=== PATIENT | female | born 1940 | race Two or more races ===

== ENCOUNTER 2021-04-26 10:34 | Inpatient (IN) | payer MEDICARE ==
[~2021-04-26] VITALS: Ht 165.1 cm; Wt 75.3 kg
[~2021-04-26 10:34] MED LIST: ACTOS; GLYB1POW; LISIPOW; LOVAPOW; METFORMIN
[2021-04-26 11:55] LABS: Basophils # (auto) 0.1 10 ^3/uL (0-0.2); Basophils % (auto) 0.6 % (0.0-2.0); Eosinophils # (auto) 0.2 10 ^3/uL (0-0.8); Eosinophils % (auto) 1.8 % (0.0-7.0); Hematocrit 35.9 % (36.0-46.0); Hemoglobin 11.8 g/dL (12.2-16.2); Lymphocytes # (auto) 1.3 10 ^3/uL (0.4-5.4); Lymphocytes % (auto) 11.6 % (10.0-50.0); Mean Corpuscular Hemoglobin 31.4 pg (28.0-32.0); Mean Corpuscular Hgb Conc. 32.8 g/dL (32.0-36.0); Mean Corpuscular Volume 95.7 fL (80.0-100.0); Monocytes # (auto) 0.9 10 ^3/uL (0-1.3); Monocytes % (auto) 7.9 % (0.0-12.0); Neutrophils # (auto) 8.5 10 ^3/uL (1.6-8.6); Neutrophils % (auto) 78.1 % (37.0-80.0); Nucleated Red Blood Cells % 0.3 %; Red Blood Cells 3.75 10^6/uL (4.0-5.20); Red Cell Distribution Width 13.1 % (11.8-14.3); White Blood Cell 10.8 10^3/uL (4.4-10.8)
[2021-04-26 12:48] LABS: Chloride 102 mmol/L (98-107); Potassium 4.6 mmol/L (3.5-5.1); Sodium 133 mmol/L (136-145)
[2021-04-26 12:49] LABS: Alanine Aminotransferase 15 U/L (13-56); Alkaline Phosphatase 119 U/L (45-117); Anion Gap 10 (5-15); Aspartate Aminotransferase 32 U/L (15-37); BUN/Creatinine Ratio 36.8; Bilirubin, Total 0.5 mg/dL (0.2-1.0); Blood Urea Nitrogen 53 mg/dL (7-18); Calcium 8.9 mg/dL (8.5-10.1); Carbon Dioxide 21 mmol/L (21-32); GFR African American 45 mL/min; GFR Non-African American 37 mL/min; Glucose 215 mg/dL (74-106); Total Protein 8.1 g/dL (6.4-8.2)
[2021-04-26 12:50] LABS: Albumin 2.7 g/dL (3.4-5.0); Magnesium 1.9 mg/dL (1.6-2.6)
[2021-04-26] MEDS ORDERED: NITROGLYCERIN 0.4 MG SL TAB SL PRN ×2 (14:45→18:30)
[2021-04-26] MEDS ORDERED: MORPHINE SULFATE INJECTION 2 MG/ML SYRG IV PRN ×3 (14:45→18:30)
[2021-04-26] MEDS ORDERED: ENOXAPARIN SOD 80 MG/0.8ML SYRINGE SC ONE (14:45)
[2021-04-26] MEDS ORDERED: DEXTROSE (50%) 50ML SYRG IV PRN ×2 (14:45→18:00)
[2021-04-26] MEDS ORDERED: ASPI-543 PO (15:49)
[2021-04-26] MEDS ORDERED: ANAS1TAB7 PO (15:49)
[2021-04-26] MEDS ORDERED: SITA50TA PO (15:49)
[2021-04-26] MEDS ORDERED: LOSA-69 PO (15:49)
[2021-04-26] MEDS ORDERED: FERR325T20 PO (15:49)
[2021-04-26] MEDS ORDERED: CARV6.2551 PO (15:49)
[2021-04-26] MEDS ORDERED: GLIP5TAB12 PO (15:49)
[2021-04-26] MEDS ORDERED: FURO40TA4 PO (15:49)
[2021-04-26] MEDS ORDERED: ATOR20TA50 PO (15:49)
[2021-04-26] MEDS ORDERED: SPIR25TA8 PO (15:49)
[2021-04-26] MEDS ORDERED: TRAM50TA2 PO (15:49)
[2021-04-26] MEDS ORDERED: ACCU-CHEK COMFORT CURVE STRIP VI SCH (17:00)
[2021-04-26] MEDS ORDERED: InsuLIN REG 1unit/0.01ml Soln (100units/ml) SC SCH (17:00)
[2021-04-26] MEDS: BUMETANIDE 2.5mg/10ml (0.25 mg/ml) INJ IV SCH (17:49)
[2021-04-26] MEDS ORDERED: cefTRIAXone 1GM/50ML D5W 50 ML IV ONE (18:00)
[2021-04-26] MEDS ORDERED: AZITHROMYCIN 500MG/ 250ML 250 ML IV ONE (18:00)
[2021-04-26] MEDS ORDERED: ALUM & MAG HYDROX-SIMETH LIQ(MAALOX) 30 ML PO PRN (18:30)
[2021-04-26] MEDS ORDERED: LORazepam 0.5 MG TAB PO PRN (18:30)
[2021-04-26 22:00] VITALS: BP 122/57
[2021-04-26] MEDS: InsuLIN REG 1unit/0.01ml Soln (100units/ml) SC SCH (22:00)
[2021-04-26] MEDS: CARVEDILOL 3.125 MG TAB PO SCH (22:16)
[2021-04-26] MEDS: ENOXAPARIN SOD 80 MG/0.8ML SYRINGE SC SCH (22:17)
[2021-04-26] MEDS: ATORVASTATIN 20 MG TAB PO SCH (22:17)
[2021-04-26] MEDS: SACUBITRIL-VALSARTAN 24mg/26mg TAB PO SCH (22:17)
[2021-04-26] MEDS: ACCU-CHEK COMFORT CURVE STRIP VI SCH (22:17)
[2021-04-27] MEDS: DOCUSATE SOD 100 MG CAP PO PRN (00:43)
[2021-04-27 06:35] VITALS: BP 107/49
[2021-04-27 06:53] LABS: Basophils # (auto) 0.1 10 ^3/uL (0-0.2); Basophils % (auto) 0.7 % (0.0-2.0); Eosinophils # (auto) 0.1 10 ^3/uL (0-0.8); Eosinophils % (auto) 0.6 % (0.0-7.0); Hemoglobin 12.1 g/dL (12.2-16.2); Lymphocytes # (auto) 0.9 10 ^3/uL (0.4-5.4); Lymphocytes % (auto) 8.3 % (10.0-50.0); Mean Corpuscular Hemoglobin 31.6 pg (28.0-32.0); Mean Corpuscular Hgb Conc. 33.5 g/dL (32.0-36.0); Mean Corpuscular Volume 94.3 fL (80.0-100.0); Monocytes # (auto) 0.7 10 ^3/uL (0-1.3); Monocytes % (auto) 6.6 % (0.0-12.0); Neutrophils # (auto) 8.9 10 ^3/uL (1.6-8.6); Neutrophils % (auto) 83.8 % (37.0-80.0); Nucleated Red Blood Cells % 0.1 %; Red Blood Cells 3.82 10^6/uL (4.0-5.20); Red Cell Distribution Width 13.4 % (11.8-14.3); White Blood Cell 10.6 10^3/uL (4.4-10.8)
[2021-04-27] MEDS: ACCU-CHEK COMFORT CURVE STRIP VI SCH ×4 (07:02→22:26)
[2021-04-27] MEDS: BUMETANIDE 2.5mg/10ml (0.25 mg/ml) INJ IV SCH ×2 (07:02→18:02)
[2021-04-27 07:12] LABS: INR 1.11 (0.9-1.15)
[2021-04-27 07:33] LABS: Potassium 4.6 mmol/L (3.5-5.1)
[2021-04-27] MEDS: InsuLIN REG 1unit/0.01ml Soln (100units/ml) SC SCH ×4 (07:42→22:26)
[2021-04-27 07:45] LABS: Albumin 2.9 g/dL (3.4-5.0); BUN/Creatinine Ratio 36.5; Bilirubin, Total 0.4 mg/dL (0.2-1.0); Magnesium 1.5 mg/dL (1.6-2.6); Phosphorus 3.6 mg/dL (2.5-4.90); Total Protein 7.1 g/dL (6.4-8.2); Uric Acid 11.2 mg/dL (2.6-6.0)
[2021-04-27 08:15] LABS: Urine Bacteria NONE SEEN /hpf (None Seen); Urine Blood TRACE /uL (Negative); Urine Hyaline Cast MANY /lpf (0 - 2); Urine Mucus FEW (None Seen); Urine Specific Gravity 1.008 (1.001-1.035); Urine WBC 201 /hpf (0 - 5); Urine WBC Clumps PRESENT /hpf (None Seen)
[2021-04-27 08:30] LABS: Cannabinoid Screen, Urine NEGATIVE (NEGATIVE)
[2021-04-27 08:38] LABS: Amphetamine Screen, Urine NEGATIVE (NEGATIVE); Barbiturate Scree,Urine NEGATIVE (NEGATIVE); Benzodiazephine Screen, Urine NEGATIVE (NEGATIVE); Cocaine Screen, Urine NEGATIVE (NEGATIVE); Opiate Scree,Urine NEGATIVE (NEGATIVE); Phencyclidine Screen, Urine NEGATIVE (NEGATIVE)
[2021-04-27 09:00] VITALS: BP 128/79
[2021-04-27] MEDS: AZITHROMYCIN 500MG/ 250ML 250 ML IV SCH (09:33)
[2021-04-27] MEDS: cefTRIAXone 1GM/50ML D5W 50 ML IV SCH (09:33)
[2021-04-27] MEDS: ASPirin 81 mg TAB PO SCH (09:33)
[2021-04-27] MEDS: ENOXAPARIN SOD 80 MG/0.8ML SYRINGE SC SCH ×2 (09:34→22:17)
[2021-04-27] MEDS: SACUBITRIL-VALSARTAN 24mg/26mg TAB PO SCH ×2 (09:34→22:16)
[2021-04-27] MEDS: CARVEDILOL 3.125 MG TAB PO SCH ×2 (09:34→22:17)
[2021-04-27 13:02] VITALS: BP 98/44
[2021-04-27 16:53] VITALS: BP 107/44
[2021-04-27] MEDS: ACETAMINOPHEN 325 MG TAB PO PRN (18:02)
[2021-04-27 22:00] VITALS: BP 121/64
[2021-04-27] MEDS: ATORVASTATIN 20 MG TAB PO SCH (22:16)
[2021-04-27] MEDS: INSULIN LANTUS (GLARGINE) 1 /0.01ml (100units/ml) SC SCH (22:25)
[2021-04-28 02:23] VITALS: BP 121/62
[2021-04-28 05:47] VITALS: BP 126/55
[2021-04-28] MEDS: BUMETANIDE 2.5mg/10ml (0.25 mg/ml) INJ IV SCH ×2 (06:23→18:06)
[2021-04-28] MEDS: InsuLIN REG 1unit/0.01ml Soln (100units/ml) SC SCH ×4 (06:26→20:40)
[2021-04-28] MEDS: INSULIN LANTUS (GLARGINE) 1 /0.01ml (100units/ml) SC SCH ×2 (06:27→20:40)
[2021-04-28] MEDS: ACCU-CHEK COMFORT CURVE STRIP VI SCH ×4 (06:31→20:40)
[2021-04-28 07:10] LABS: Basophils # (auto) 0 10 ^3/uL (0-0.2); Basophils % (auto) 0.4 % (0.0-2.0); Eosinophils # (auto) 0.1 10 ^3/uL (0-0.8); Eosinophils % (auto) 1.3 % (0.0-7.0); Hemoglobin 11.2 g/dL (12.2-16.2); Lymphocytes % (auto) 10.5 % (10.0-50.0); Mean Corpuscular Hemoglobin 31.8 pg (28.0-32.0); Mean Corpuscular Volume 93.4 fL (80.0-100.0); Monocytes # (auto) 0.6 10 ^3/uL (0-1.3); Monocytes % (auto) 6.7 % (0.0-12.0); Neutrophils # (auto) 7.8 10 ^3/uL (1.6-8.6); Neutrophils % (auto) 81.1 % (37.0-80.0); Nucleated Red Blood Cells % 0.1 %; Red Blood Cells 3.53 10^6/uL (4.0-5.20); White Blood Cell 9.6 10^3/uL (4.4-10.8)
[2021-04-28 07:21] LABS: Albumin 2.5 g/dL (3.4-5.0); Calcium 8.5 mg/dL (8.5-10.1); Magnesium 1.4 mg/dL (1.6-2.6); Potassium 4.1 mmol/L (3.5-5.1)
[2021-04-28 07:30] LABS: BUN/Creatinine Ratio 34.6; Bilirubin, Total 0.3 mg/dL (0.2-1.0); Total Protein 7.3 g/dL (6.4-8.2)
[2021-04-28 09:00] VITALS: BP 117/49
[2021-04-28] MEDS: cefTRIAXone 1GM/50ML D5W 50 ML IV SCH (10:17)
[2021-04-28] MEDS: CARVEDILOL 3.125 MG TAB PO SCH ×2 (10:18→21:30)
[2021-04-28] MEDS: ASPirin 81 mg TAB PO SCH (10:18)
[2021-04-28] MEDS: AZITHROMYCIN 500MG/ 250ML 250 ML IV SCH (10:18)
[2021-04-28] MEDS: ENOXAPARIN SOD 80 MG/0.8ML SYRINGE SC SCH (10:19)
[2021-04-28] MEDS: SACUBITRIL-VALSARTAN 24mg/26mg TAB PO SCH ×2 (10:19→21:30)
[2021-04-28 13:00] VITALS: BP 118/52
[2021-04-28 17:00] VITALS: BP 107/50
[2021-04-28] MEDS: ATORVASTATIN 20 MG TAB PO SCH (21:30)
[2021-04-28 22:00] VITALS: BP 119/62
[2021-04-29] MEDS: InsuLIN REG 1unit/0.01ml Soln (100units/ml) SC SCH ×4 (05:07→20:49)
[2021-04-29] MEDS: ACCU-CHEK COMFORT CURVE STRIP VI SCH ×4 (05:07→20:44)
[2021-04-29] MEDS: INSULIN LANTUS (GLARGINE) 1 /0.01ml (100units/ml) SC SCH ×2 (05:12→20:50)
[2021-04-29] MEDS: BUMETANIDE 2.5mg/10ml (0.25 mg/ml) INJ IV SCH ×2 (05:14→17:40)
[2021-04-29 05:17] VITALS: BP 113/90
[2021-04-29 06:01] LABS: Basophils # (auto) 0.1 10 ^3/uL (0-0.2); Basophils % (auto) 0.7 % (0.0-2.0); Eosinophils # (auto) 0.2 10 ^3/uL (0-0.8); Hematocrit 32.3 % (36.0-46.0); Hemoglobin 10.9 g/dL (12.2-16.2); Lymphocytes # (auto) 1.1 10 ^3/uL (0.4-5.4); Lymphocytes % (auto) 12.4 % (10.0-50.0); Mean Corpuscular Hemoglobin 31.6 pg (28.0-32.0); Mean Corpuscular Hgb Conc. 33.6 g/dL (32.0-36.0); Monocytes # (auto) 0.5 10 ^3/uL (0-1.3); Monocytes % (auto) 5.6 % (0.0-12.0); Neutrophils % (auto) 79.3 % (37.0-80.0); Nucleated Red Blood Cells % 0.1 %; Red Blood Cells 3.44 10^6/uL (4.0-5.20); Red Cell Distribution Width 12.9 % (11.8-14.3); White Blood Cell 8.8 10^3/uL (4.4-10.8)
[2021-04-29 06:21] LABS: Calcium 8.5 mg/dL (8.5-10.1); Potassium 4.2 mmol/L (3.5-5.1)
[2021-04-29 06:23] LABS: BUN/Creatinine Ratio 34.5
[2021-04-29 08:00] VITALS: BP 99/58
[2021-04-29] MEDS: ASPirin 81 mg TAB PO SCH (09:29)
[2021-04-29] MEDS: SACUBITRIL-VALSARTAN 24mg/26mg TAB PO SCH ×2 (09:33→22:00)
[2021-04-29] MEDS: CARVEDILOL 3.125 MG TAB PO SCH ×3 (09:33→22:01)
[2021-04-29] MEDS: ENOXAPARIN SOD 80 MG/0.8ML SYRINGE SC SCH (09:34)
[2021-04-29] MEDS: cefTRIAXone 1GM/50ML D5W 50 ML IV SCH ×2 (09:35→10:40)
[2021-04-29] MEDS: AZITHROMYCIN 500MG/ 250ML 250 ML IV SCH (09:36)
[2021-04-29 09:49] LABS: INR 1.03 (0.9-1.15)
[2021-04-29 12:00] VITALS: BP 108/69
[2021-04-29 16:00] VITALS: BP 116/56
[2021-04-29 22:00] VITALS: BP 105/50
[2021-04-29] MEDS: ATORVASTATIN 20 MG TAB PO SCH (22:00)
[2021-04-30] VITALS (12 sets, daily range): BP systolic 84–135; BP diastolic 33–67
[2021-04-30] MEDS: INSULIN LANTUS (GLARGINE) 1 /0.01ml (100units/ml) SC SCH ×2 (05:16→21:49)
[2021-04-30] MEDS: InsuLIN REG 1unit/0.01ml Soln (100units/ml) SC SCH ×4 (05:20→21:48)
[2021-04-30] MEDS: ACCU-CHEK COMFORT CURVE STRIP VI SCH ×4 (05:20→21:49)
[2021-04-30] MEDS: BUMETANIDE 2.5mg/10ml (0.25 mg/ml) INJ IV SCH ×2 (05:28→18:59)
[2021-04-30 06:38] LABS: INR 0.99 (0.9-1.15); Partial Thromboplastin Time 29.2 sec (23.6-33.0)
[2021-04-30] MEDS: cefTRIAXone 1GM/50ML D5W 50 ML IV SCH (08:36)
[2021-04-30] MEDS ORDERED: LIDOCAINE 2%HCL (LOCAL ANESTH.) INJ 20ML MDV ONE (08:49)
[2021-04-30] MEDS ORDERED: MIDAZOLAM HCL 2MG/2ML 2ml VIAL (1mg/ml) IV ONE (09:30)
[2021-04-30] MEDS ORDERED: fentaNYL CITRATE 100 MCG/2 ML VL IV ONE (09:30)
[2021-04-30] MEDS: ENOXAPARIN SOD 80 MG/0.8ML SYRINGE SC SCH (10:00)
[2021-04-30] MEDS: ASPirin 81 mg TAB PO SCH (10:00)
[2021-04-30] MEDS: SACUBITRIL-VALSARTAN 24mg/26mg TAB PO SCH ×2 (11:06→21:47)
[2021-04-30] MEDS: CARVEDILOL 3.125 MG TAB PO SCH ×2 (11:07→21:45)
[2021-04-30] MEDS: AZITHROMYCIN 500MG/ 250ML 250 ML IV SCH (13:58)
[2021-04-30] MEDS: ERTAPENEM SOD INJ 1 GM in SODIUM CHL 0.9% 50 ML IV ONE ×2 (13:59→15:20)
[2021-04-30] MEDS: ACETAMINOPHEN 325 MG TAB PO PRN (15:20)
[2021-04-30 16:43] LABS: Basophils % (manual) 0 (0.0-2.0); Blast Cells 0; Metamyelocytes % 0; Myelocytes % 0; Promyelocytes % 0; Reactive Lymphocytes 0
[2021-04-30] MEDS: HYDROcodone-ACET 5/325MG TAB PO PRN (16:45)
[2021-04-30] MEDS: ONDANSETRON HCL 4 MG/2 ML VIAL IV PRN (17:24)
[2021-04-30 19:06] LABS: Band Neutrophils % (manual) 2; Eosinophils % (manual) 1 (0-7); Lymphocytes % (manual) 9 (10.0-50.0); Monocytes % (manual) 8 (0-12); White Blood Cell 9.3 10^3/uL (4.4-10.8)
[2021-04-30] MEDS: ATORVASTATIN 20 MG TAB PO SCH (21:43)
[2021-05-01] MEDS: HYDROcodone-ACET 5/325MG TAB PO PRN (00:36)
[2021-05-01 03:12] VITALS: BP 106/63
[2021-05-01] MEDS: ALBUTEROL SULF 2.5 MG/0.5ML(0.5%) NEB SOLN NEB PRN ×2 (03:20→03:22)
[2021-05-01 06:12] VITALS: BP 104/52
[2021-05-01] MEDS: BUMETANIDE 2.5mg/10ml (0.25 mg/ml) INJ IV SCH ×2 (06:15→17:43)
[2021-05-01] MEDS: ACCU-CHEK COMFORT CURVE STRIP VI SCH ×4 (06:16→22:50)
[2021-05-01] MEDS: InsuLIN REG 1unit/0.01ml Soln (100units/ml) SC SCH ×4 (06:17→22:00)
[2021-05-01] MEDS: INSULIN LANTUS (GLARGINE) 1 /0.01ml (100units/ml) SC SCH ×2 (06:17→22:00)
[2021-05-01 06:55] LABS: Basophils # (auto) 0 10 ^3/uL (0-0.2); Basophils % (auto) 0.2 % (0.0-2.0); Eosinophils # (auto) 0 10 ^3/uL (0-0.8); Eosinophils % (auto) 0.1 % (0.0-7.0); Hematocrit 35.5 % (36.0-46.0); Hemoglobin 11.8 g/dL (12.2-16.2); Lymphocytes # (auto) 0.7 10 ^3/uL (0.4-5.4); Lymphocytes % (auto) 5.3 % (10.0-50.0); Mean Corpuscular Hemoglobin 31.2 pg (28.0-32.0); Mean Corpuscular Hgb Conc. 33.2 g/dL (32.0-36.0); Mean Corpuscular Volume 94.1 fL (80.0-100.0); Monocytes # (auto) 0.4 10 ^3/uL (0-1.3); Monocytes % (auto) 3.3 % (0.0-12.0); Neutrophils # (auto) 11.5 10 ^3/uL (1.6-8.6); Neutrophils % (auto) 91.1 % (37.0-80.0); Red Blood Cells 3.77 10^6/uL (4.0-5.20); Red Cell Distribution Width 13.2 % (11.8-14.3); White Blood Cell 12.6 10^3/uL (4.4-10.8)
[2021-05-01 07:14] LABS: BUN/Creatinine Ratio 34.2; Calcium 8.7 mg/dL (8.5-10.1)
[2021-05-01 09:00] VITALS: BP 97/44
[2021-05-01] MEDS: AZITHROMYCIN 500MG/ 250ML 250 ML IV SCH (10:00)
[2021-05-01] MEDS: ASPirin 81 mg TAB PO SCH (10:31)
[2021-05-01] MEDS: ENOXAPARIN SOD 80 MG/0.8ML SYRINGE SC SCH (10:31)
[2021-05-01] MEDS: CARVEDILOL 3.125 MG TAB PO SCH ×2 (10:33→22:00)
[2021-05-01] MEDS: ERTAPENEM SOD INJ 0.5 GM in SODIUM CHL 0.9% 50 ML IV SCH (12:00)
[2021-05-01 13:00] VITALS: BP 99/46
[2021-05-01] MEDS: SACUBITRIL-VALSARTAN 24mg/26mg TAB PO SCH ×2 (13:03→22:00)
[2021-05-01 17:00] VITALS: BP 102/46
[2021-05-01 21:52] VITALS: BP 92/50
[2021-05-01] MEDS: ATORVASTATIN 20 MG TAB PO SCH (22:39)
[2021-05-02] MEDS: HYDROcodone-ACET 5/325MG TAB PO PRN ×2 (03:45→21:00)
[2021-05-02 05:05] VITALS: BP 156/43
[2021-05-02] MEDS: BUMETANIDE 2.5mg/10ml (0.25 mg/ml) INJ IV SCH (05:27)
[2021-05-02] MEDS: InsuLIN REG 1unit/0.01ml Soln (100units/ml) SC SCH ×4 (06:36→22:11)
[2021-05-02] MEDS: INSULIN LANTUS (GLARGINE) 1 /0.01ml (100units/ml) SC SCH ×2 (06:36→22:13)
[2021-05-02] MEDS: ACCU-CHEK COMFORT CURVE STRIP VI SCH ×4 (06:37→21:49)
[2021-05-02 09:00] VITALS: BP 99/46
[2021-05-02 09:32] LABS: BUN/Creatinine Ratio 30.5; Calcium 8.5 mg/dL (8.5-10.1); Potassium 4.6 mmol/L (3.5-5.1)
[2021-05-02 09:33] LABS: Basophils # (auto) 0 10 ^3/uL (0-0.2); Basophils % (auto) 0.3 % (0.0-2.0); Eosinophils # (auto) 0.1 10 ^3/uL (0-0.8); Eosinophils % (auto) 0.5 % (0.0-7.0); Hematocrit 33.2 % (36.0-46.0); Lymphocytes # (auto) 1.2 10 ^3/uL (0.4-5.4); Lymphocytes % (auto) 11.7 % (10.0-50.0); Mean Corpuscular Hemoglobin 31.1 pg (28.0-32.0); Mean Corpuscular Hgb Conc. 33.2 g/dL (32.0-36.0); Mean Corpuscular Volume 93.8 fL (80.0-100.0); Monocytes # (auto) 0.7 10 ^3/uL (0-1.3); Monocytes % (auto) 7.2 % (0.0-12.0); Neutrophils # (auto) 8.2 10 ^3/uL (1.6-8.6); Neutrophils % (auto) 80.3 % (37.0-80.0); Nucleated Red Blood Cells % 0.1 %; Red Blood Cells 3.54 10^6/uL (4.0-5.20); White Blood Cell 10.2 10^3/uL (4.4-10.8)
[2021-05-02] MEDS: ENOXAPARIN SOD 80 MG/0.8ML SYRINGE SC SCH (11:09)
[2021-05-02] MEDS: ASPirin 81 mg TAB PO SCH (11:09)
[2021-05-02] MEDS: AZITHROMYCIN 500MG/ 250ML 250 ML IV SCH (11:09)
[2021-05-02] MEDS: SACUBITRIL-VALSARTAN 24mg/26mg TAB PO SCH ×2 (11:12→22:11)
[2021-05-02] MEDS: CARVEDILOL 3.125 MG TAB PO SCH ×2 (11:12→22:12)
[2021-05-02 13:00] VITALS: BP 96/51
[2021-05-02] MEDS: ERTAPENEM SOD INJ 0.5 GM in SODIUM CHL 0.9% 50 ML IV SCH (13:12)
[2021-05-02 17:15] VITALS: BP 108/46
[2021-05-02] MEDS: Glucerna Carbsteady SHAKE Vanilla 8oz PO SCH (18:09)
[2021-05-02 21:35] VITALS: BP 117/62
[2021-05-02] MEDS: ATORVASTATIN 20 MG TAB PO SCH (22:11)
[2021-05-03 04:07] LABS: Urine Bacteria NONE SEEN /hpf (None Seen); Urine Blood Negative /uL (Negative); Urine Hyaline Cast FEW /lpf (0 - 2); Urine Specific Gravity 1.016 (1.001-1.035); Urine WBC 1 /hpf (0 - 5)
[2021-05-03 04:08] LABS: Protein, Urine 38.1 mg/dL (0.0-11.9)
[2021-05-03 05:00] VITALS: BP 142/66
[2021-05-03] MEDS: ACCU-CHEK COMFORT CURVE STRIP VI SCH ×4 (06:53→22:40)
[2021-05-03] MEDS: INSULIN LANTUS (GLARGINE) 1 /0.01ml (100units/ml) SC SCH ×2 (06:59→22:47)
[2021-05-03] MEDS: InsuLIN REG 1unit/0.01ml Soln (100units/ml) SC SCH ×4 (07:00→22:47)
[2021-05-03 09:00] VITALS: BP 90/58
[2021-05-03] MEDS: Glucerna Carbsteady SHAKE Vanilla 8oz PO SCH ×2 (09:27→17:35)
[2021-05-03 09:37] LABS: Basophils # (auto) 0 10 ^3/uL (0-0.2); Basophils % (auto) 0.4 % (0.0-2.0); Eosinophils # (auto) 0.1 10 ^3/uL (0-0.8); Eosinophils % (auto) 0.7 % (0.0-7.0); Hematocrit 32.9 % (36.0-46.0); Lymphocytes # (auto) 0.9 10 ^3/uL (0.4-5.4); Lymphocytes % (auto) 9.8 % (10.0-50.0); Mean Corpuscular Hemoglobin 31.7 pg (28.0-32.0); Mean Corpuscular Hgb Conc. 33.4 g/dL (32.0-36.0); Mean Corpuscular Volume 94.7 fL (80.0-100.0); Monocytes # (auto) 0.8 10 ^3/uL (0-1.3); Monocytes % (auto) 8.9 % (0.0-12.0); Neutrophils # (auto) 7.6 10 ^3/uL (1.6-8.6); Neutrophils % (auto) 80.2 % (37.0-80.0); Red Blood Cells 3.48 10^6/uL (4.0-5.20); Red Cell Distribution Width 13.4 % (11.8-14.3); White Blood Cell 9.5 10^3/uL (4.4-10.8)
[2021-05-03 09:38] LABS: Potassium 4.8 mmol/L (3.5-5.1)
[2021-05-03 09:56] LABS: BUN/Creatinine Ratio 28.4; Calcium 8.4 mg/dL (8.5-10.1)
[2021-05-03] MEDS: SACUBITRIL-VALSARTAN 24mg/26mg TAB PO SCH ×2 (10:00→22:40)
[2021-05-03] MEDS: CARVEDILOL 3.125 MG TAB PO SCH ×2 (10:00→22:39)
[2021-05-03] MEDS: ENOXAPARIN SOD 80 MG/0.8ML SYRINGE SC SCH (10:36)
[2021-05-03] MEDS: ASPirin 81 mg TAB PO SCH (10:36)
[2021-05-03 13:00] VITALS: BP 103/52
[2021-05-03] MEDS: ERTAPENEM SOD INJ 0.5 GM in SODIUM CHL 0.9% 50 ML IV SCH (14:45)
[2021-05-03 16:41] VITALS: BP 94/49
[2021-05-03 20:42] VITALS: BP 94/49
[2021-05-03 21:44] VITALS: BP 148/66
[2021-05-03] MEDS: ATORVASTATIN 20 MG TAB PO SCH (22:40)
[2021-05-04 04:59] VITALS: BP 108/48
[2021-05-04] MEDS: ACCU-CHEK COMFORT CURVE STRIP VI SCH ×4 (06:24→21:41)
[2021-05-04] MEDS: InsuLIN REG 1unit/0.01ml Soln (100units/ml) SC SCH ×4 (06:28→21:42)
[2021-05-04] MEDS: INSULIN LANTUS (GLARGINE) 1 /0.01ml (100units/ml) SC SCH ×2 (06:32→21:46)
[2021-05-04] MEDS: Glucerna Carbsteady SHAKE Vanilla 8oz PO SCH ×2 (08:00→18:03)
[2021-05-04 08:10] LABS: Basophils # (auto) 0 10 ^3/uL (0-0.2); Basophils % (auto) 0.5 % (0.0-2.0); Eosinophils # (auto) 0.1 10 ^3/uL (0-0.8); Eosinophils % (auto) 0.6 % (0.0-7.0); Hematocrit 31.6 % (36.0-46.0); Hemoglobin 10.3 g/dL (12.2-16.2); Lymphocytes # (auto) 0.8 10 ^3/uL (0.4-5.4); Mean Corpuscular Hemoglobin 30.8 pg (28.0-32.0); Mean Corpuscular Hgb Conc. 32.5 g/dL (32.0-36.0); Mean Corpuscular Volume 94.9 fL (80.0-100.0); Monocytes # (auto) 0.6 10 ^3/uL (0-1.3); Monocytes % (auto) 6.8 % (0.0-12.0); Neutrophils # (auto) 7.7 10 ^3/uL (1.6-8.6); Neutrophils % (auto) 83.1 % (37.0-80.0); Red Blood Cells 3.33 10^6/uL (4.0-5.20); Red Cell Distribution Width 13.1 % (11.8-14.3); White Blood Cell 9.3 10^3/uL (4.4-10.8)
[2021-05-04 08:20] LABS: Calcium 8.4 mg/dL (8.5-10.1); Potassium 5.1 mmol/L (3.5-5.1)
[2021-05-04 09:00] VITALS: BP 126/60
[2021-05-04] MEDS: ASPirin 81 mg TAB PO SCH (10:00)
[2021-05-04] MEDS: CARVEDILOL 3.125 MG TAB PO SCH ×2 (10:00→21:41)
[2021-05-04] MEDS: ENOXAPARIN SOD 80 MG/0.8ML SYRINGE SC SCH (10:00)
[2021-05-04] MEDS: SACUBITRIL-VALSARTAN 24mg/26mg TAB PO SCH ×2 (10:00→21:41)
[2021-05-04] MEDS: HYDROcodone-ACET 5/325MG TAB PO PRN (10:34)
[2021-05-04] MEDS: ERTAPENEM SOD INJ 0.5 GM in SODIUM CHL 0.9% 50 ML IV SCH (11:43)
[2021-05-04] MEDS: DOPamine 1600MCG/ML D5W 250 ML IV SCH (12:54)
[2021-05-04 13:00] VITALS: BP 127/52
[2021-05-04 17:00] VITALS: BP 127/57
[2021-05-04] MEDS: ATORVASTATIN 20 MG TAB PO SCH (21:41)
[2021-05-04 22:00] VITALS: BP 125/57
[2021-05-05] VITALS (7 sets, daily range): BP systolic 93–153; BP diastolic 47–81
[2021-05-05] MEDS: ACCU-CHEK COMFORT CURVE STRIP VI SCH ×4 (06:11→21:41)
[2021-05-05] MEDS: InsuLIN REG 1unit/0.01ml Soln (100units/ml) SC SCH ×4 (06:11→22:19)
[2021-05-05] MEDS: INSULIN LANTUS (GLARGINE) 1 /0.01ml (100units/ml) SC SCH ×2 (06:35→22:19)
[2021-05-05] MEDS: Glucerna Carbsteady SHAKE Vanilla 8oz PO SCH ×2 (09:14→17:51)
[2021-05-05] MEDS: SACUBITRIL-VALSARTAN 24mg/26mg TAB PO SCH ×2 (09:15→21:41)
[2021-05-05] MEDS: CARVEDILOL 3.125 MG TAB PO SCH ×2 (09:15→21:41)
[2021-05-05] MEDS: ASPirin 81 mg TAB PO SCH (09:15)
[2021-05-05] MEDS: ENOXAPARIN SOD 80 MG/0.8ML SYRINGE SC SCH (09:16)
[2021-05-05] MEDS: ERTAPENEM SOD INJ 0.5 GM in SODIUM CHL 0.9% 50 ML IV SCH (12:39)
[2021-05-05] MEDS: ONDANSETRON HCL 4 MG/2 ML VIAL IV PRN (12:40)
[2021-05-05] MEDS: DOPamine 1600MCG/ML D5W 250 ML IV SCH (12:45)
[2021-05-05] MEDS: ATORVASTATIN 20 MG TAB PO SCH (21:41)
[2021-05-06] VITALS (7 sets, daily range): BP systolic 95–130; BP diastolic 44–67
[2021-05-06] MEDS: INSULIN LANTUS (GLARGINE) 1 /0.01ml (100units/ml) SC SCH ×2 (06:23→22:34)
[2021-05-06] MEDS: ACCU-CHEK COMFORT CURVE STRIP VI SCH ×4 (06:23→22:25)
[2021-05-06] MEDS: InsuLIN REG 1unit/0.01ml Soln (100units/ml) SC SCH ×4 (06:24→22:00)
[2021-05-06] MEDS: Glucerna Carbsteady SHAKE Vanilla 8oz PO SCH ×2 (10:00→16:54)
[2021-05-06] MEDS: ASPirin 81 mg TAB PO SCH (11:36)
[2021-05-06] MEDS: CARVEDILOL 3.125 MG TAB PO SCH ×2 (11:36→22:24)
[2021-05-06] MEDS: ENOXAPARIN SOD 80 MG/0.8ML SYRINGE SC SCH (11:37)
[2021-05-06] MEDS: SACUBITRIL-VALSARTAN 24mg/26mg TAB PO SCH ×2 (11:37→22:23)
[2021-05-06] MEDS: DOPamine 1600MCG/ML D5W 250 ML IV SCH ×2 (12:00→12:15)
[2021-05-06] MEDS: ERTAPENEM SOD INJ 0.5 GM in SODIUM CHL 0.9% 50 ML IV SCH (12:14)
[2021-05-06] MEDS: ACETAMINOPHEN 325 MG TAB PO PRN (15:00)
[2021-05-06] MEDS: ATORVASTATIN 20 MG TAB PO SCH (22:24)
[2021-05-07 05:00] VITALS: BP 122/60
[2021-05-07] MEDS: InsuLIN REG 1unit/0.01ml Soln (100units/ml) SC SCH ×4 (06:24→21:52)
[2021-05-07] MEDS: ACCU-CHEK COMFORT CURVE STRIP VI SCH ×4 (06:25→21:52)
[2021-05-07] MEDS: INSULIN LANTUS (GLARGINE) 1 /0.01ml (100units/ml) SC SCH ×2 (06:26→21:58)
[2021-05-07] MEDS: Glucerna Carbsteady SHAKE Vanilla 8oz PO SCH (08:25)
[2021-05-07 09:00] VITALS: BP 98/48
[2021-05-07] MEDS: ASPirin 81 mg TAB PO SCH (11:15)
[2021-05-07] MEDS: SACUBITRIL-VALSARTAN 24mg/26mg TAB PO SCH (11:16)
[2021-05-07] MEDS: ENOXAPARIN SOD 80 MG/0.8ML SYRINGE SC SCH (11:16)
[2021-05-07] MEDS: DOCUSATE SOD 100 MG CAP PO PRN (11:16)
[2021-05-07] MEDS: DOPamine 1600MCG/ML D5W 250 ML IV SCH (11:20)
[2021-05-07] MEDS: CARVEDILOL 3.125 MG TAB PO SCH ×2 (11:20→21:51)
[2021-05-07 11:28] LABS: Basophils # (auto) 0 10 ^3/uL (0-0.2); Basophils % (auto) 0.5 % (0.0-2.0); Eosinophils # (auto) 0.1 10 ^3/uL (0-0.8); Eosinophils % (auto) 1.3 % (0.0-7.0); Hematocrit 33.2 % (36.0-46.0); Lymphocytes # (auto) 0.9 10 ^3/uL (0.4-5.4); Mean Corpuscular Hemoglobin 31.9 pg (28.0-32.0); Mean Corpuscular Hgb Conc. 33.2 g/dL (32.0-36.0); Mean Corpuscular Volume 96.3 fL (80.0-100.0); Monocytes # (auto) 0.6 10 ^3/uL (0-1.3); Monocytes % (auto) 7.8 % (0.0-12.0); Neutrophils # (auto) 6.2 10 ^3/uL (1.6-8.6); Neutrophils % (auto) 79.4 % (37.0-80.0); Nucleated Red Blood Cells % 0.1 %; Red Blood Cells 3.45 10^6/uL (4.0-5.20); White Blood Cell 7.8 10^3/uL (4.4-10.8)
[2021-05-07 11:53] LABS: BUN/Creatinine Ratio 57.8; Calcium 8.7 mg/dL (8.5-10.1)
[2021-05-07 12:59] LABS: Potassium 5.8 mmol/L (3.5-5.1)
[2021-05-07 13:25] VITALS: BP 133/70
[2021-05-07] MEDS: ACETAMINOPHEN 325 MG TAB PO PRN (13:34)
[2021-05-07] MEDS: ERTAPENEM SOD INJ 0.5 GM in SODIUM CHL 0.9% 50 ML IV SCH (13:34)
[2021-05-07] MEDS ORDERED: InsuLIN REG 1unit/0.01ml Soln (100units/ml) IV ONE (13:45)
[2021-05-07] MEDS ORDERED: FUROSEMIDE 100 MG/10ML VIAL IV ONE (13:45)
[2021-05-07] MEDS ORDERED: SODIUM BICARBONATE 8.4 % INJ 50ML VIAL IV ONE (13:45)
[2021-05-07] MEDS ORDERED: CALCIUM GLUC 1,000mg/50ml-NS 50 ML IV ONE (13:45)
[2021-05-07] MEDS ORDERED: DEXTROSE (50%) 50ML SYRG IV ONE (13:45)
[2021-05-07 17:20] VITALS: BP 118/59
[2021-05-07] MEDS: Nepro With Carbsteady ButterPecan 8oz Carton PO SCH (18:00)
[2021-05-07] MEDS: ATORVASTATIN 20 MG TAB PO SCH (21:51)
[2021-05-07 22:00] VITALS: BP 136/56
[2021-05-08 04:43] VITALS: BP 127/59
[2021-05-08 06:03] LABS: Basophils # (auto) 0 10 ^3/uL (0-0.2); Basophils % (auto) 0.5 % (0.0-2.0); Eosinophils # (auto) 0.1 10 ^3/uL (0-0.8); Eosinophils % (auto) 1.2 % (0.0-7.0); Hematocrit 32.3 % (36.0-46.0); Hemoglobin 10.3 g/dL (12.2-16.2); Lymphocytes % (auto) 12.8 % (10.0-50.0); Mean Corpuscular Hemoglobin 30.7 pg (28.0-32.0); Mean Corpuscular Hgb Conc. 31.9 g/dL (32.0-36.0); Mean Corpuscular Volume 96.3 fL (80.0-100.0); Monocytes # (auto) 0.7 10 ^3/uL (0-1.3); Monocytes % (auto) 8.8 % (0.0-12.0); Neutrophils # (auto) 5.8 10 ^3/uL (1.6-8.6); Neutrophils % (auto) 76.7 % (37.0-80.0); Nucleated Red Blood Cells % 0.1 %; Red Blood Cells 3.36 10^6/uL (4.0-5.20); Red Cell Distribution Width 13.3 % (11.8-14.3); White Blood Cell 7.6 10^3/uL (4.4-10.8)
[2021-05-08 06:22] LABS: Calcium 8.3 mg/dL (8.5-10.1); Potassium 5.2 mmol/L (3.5-5.1)
[2021-05-08 06:24] LABS: BUN/Creatinine Ratio 71.4
[2021-05-08] MEDS: InsuLIN REG 1unit/0.01ml Soln (100units/ml) SC SCH ×4 (06:42→21:39)
[2021-05-08] MEDS: ACCU-CHEK COMFORT CURVE STRIP VI SCH ×4 (06:42→21:43)
[2021-05-08] MEDS: INSULIN LANTUS (GLARGINE) 1 /0.01ml (100units/ml) SC SCH ×2 (06:43→21:40)
[2021-05-08 09:00] VITALS: BP 147/61
[2021-05-08] MEDS: Nepro With Carbsteady ButterPecan 8oz Carton PO SCH ×2 (09:12→17:53)
[2021-05-08] MEDS: ASPirin 81 mg TAB PO SCH (09:21)
[2021-05-08] MEDS: CARVEDILOL 3.125 MG TAB PO SCH ×2 (09:22→21:42)
[2021-05-08] MEDS: ENOXAPARIN SOD 80 MG/0.8ML SYRINGE SC SCH (09:22)
[2021-05-08] MEDS ORDERED: SODI5PAK PO (10:42)
[2021-05-08] MEDS ORDERED: APIX5TAB PO (10:42)
[2021-05-08 12:05] LABS: Calcium 8.4 mg/dL (8.5-10.1)
[2021-05-08 12:07] LABS: BUN/Creatinine Ratio 65.2
[2021-05-08 12:10] LABS: Potassium 5.6 mmol/L (3.5-5.1)
[2021-05-08 12:52] VITALS: BP 146/63
[2021-05-08] MEDS: SODIUM ZIRCONIUM CYCL 10 GM PAK PO SCH ×2 (13:08→21:42)
[2021-05-08] MEDS: DOCUSATE SOD 100 MG CAP PO PRN (13:16)
[2021-05-08] MEDS: ERTAPENEM SOD INJ 0.5 GM in SODIUM CHL 0.9% 50 ML IV SCH (14:01)
[2021-05-08] MEDS: ATORVASTATIN 20 MG TAB PO SCH (21:41)
[2021-05-08 22:00] VITALS: BP 162/67
[2021-05-09 05:00] VITALS: BP 151/64
[2021-05-09] MEDS: SODIUM ZIRCONIUM CYCL 10 GM PAK PO SCH ×2 (06:00→16:11)
[2021-05-09] MEDS: InsuLIN REG 1unit/0.01ml Soln (100units/ml) SC SCH ×3 (06:10→17:00)
[2021-05-09] MEDS: ACCU-CHEK COMFORT CURVE STRIP VI SCH ×3 (06:11→17:51)
[2021-05-09 06:24] LABS: Basophils # (auto) 0 10 ^3/uL (0-0.2); Basophils % (auto) 0.4 % (0.0-2.0); Eosinophils # (auto) 0.1 10 ^3/uL (0-0.8); Eosinophils % (auto) 1.7 % (0.0-7.0); Hematocrit 29.3 % (36.0-46.0); Hemoglobin 9.8 g/dL (12.2-16.2); Lymphocytes % (auto) 12.7 % (10.0-50.0); Mean Corpuscular Hemoglobin 31.7 pg (28.0-32.0); Mean Corpuscular Hgb Conc. 33.3 g/dL (32.0-36.0); Mean Corpuscular Volume 95.3 fL (80.0-100.0); Monocytes # (auto) 0.6 10 ^3/uL (0-1.3); Monocytes % (auto) 8.1 % (0.0-12.0); Neutrophils # (auto) 6.2 10 ^3/uL (1.6-8.6); Neutrophils % (auto) 77.1 % (37.0-80.0); Red Blood Cells 3.08 10^6/uL (4.0-5.20); Red Cell Distribution Width 13.3 % (11.8-14.3)
[2021-05-09 06:37] LABS: BUN/Creatinine Ratio 61.6; Calcium 7.9 mg/dL (8.5-10.1); Potassium 4.6 mmol/L (3.5-5.1)
[2021-05-09] MEDS: Nepro With Carbsteady ButterPecan 8oz Carton PO SCH ×2 (08:00→18:00)
[2021-05-09 09:00] VITALS: BP 141/69
[2021-05-09] MEDS: ASPirin 81 mg TAB PO SCH (09:58)
[2021-05-09] MEDS: CARVEDILOL 3.125 MG TAB PO SCH (09:59)
[2021-05-09] MEDS: ENOXAPARIN SOD 80 MG/0.8ML SYRINGE SC SCH (10:00)
[2021-05-09] MEDS: INSULIN LANTUS (GLARGINE) 1 /0.01ml (100units/ml) SC SCH (10:03)
[2021-05-09 13:00] VITALS: BP 126/59
[2021-05-09] MEDS: ACETAMINOPHEN 325 MG TAB PO PRN (13:18)
[2021-05-09] MEDS: ERTAPENEM SOD INJ 0.5 GM in SODIUM CHL 0.9% 50 ML IV SCH (16:10)
[2021-05-09 16:26] VITALS: BP 162/61
[2021-05-09 16:58] VITALS: BP 126/59
[2021-05-09 19:13] VITALS: BP 147/79
[2021-05-13] MEDS ORDERED: DABI150C5 PO (12:36)
== END 2021-05-09 19:10 | disposition home or self-care (01) | DRG 193 ==
LOC: EDBD 10:34 → ER 10:34 → TELE 14:39 → TELE-WESTW 15:48
PROVIDERS: ADMIT Hospitalist; ATTEND Internal Medicine Pulmonary Disease
PROC: 0W9930Z Drainage of Right Pleural Cavity with Drainage Device, Percutaneous Approach (ICD-10-PCS; principal; 2021-04-30)
PROC: 05HB33Z Insertion of Infusion Device into Right Basilic Vein, Percutaneous Approach (ICD-10-PCS; 2021-04-30)
PROC: B54MZZA Ultrasonography of Right Upper Extremity Veins, Guidance (ICD-10-PCS; 2021-04-30)
DX: J18.9 Pneumonia, unspecified organism (principal); J96.21 Acute and chronic respiratory failure with hypoxia; I50.43 Acute on chronic combined systolic (congestive) and diastolic (congestive) heart failure; N17.0 Acute kidney failure with tubular necrosis; I13.0 Hypertensive heart and chronic kidney disease with heart failure and stage 1 through stage 4 chronic kidney disease, or unspecified chronic kidney disease; J91.0 Malignant pleural effusion; I82.432 Acute embolism and thrombosis of left popliteal vein; I50.82 Biventricular heart failure; N18.32 Chronic kidney disease, stage 3b; E11.40 Type 2 diabetes mellitus with diabetic neuropathy, unspecified; E66.01 Morbid (severe) obesity due to excess calories; E88.09 Other disorders of plasma-protein metabolism, not elsewhere classified; I87.2 Venous insufficiency (chronic) (peripheral); I44.7 Left bundle-branch block, unspecified; D63.1 Anemia in chronic kidney disease; E11.22 Type 2 diabetes mellitus with diabetic chronic kidney disease; E78.5 Hyperlipidemia, unspecified; M19.90 Unspecified osteoarthritis, unspecified site; Z20.822 Contact with and (suspected) exposure to COVID-19; Z79.811 Long term (current) use of aromatase inhibitors; Z79.82 Long term (current) use of aspirin; Z79.899 Other long term (current) drug therapy; Z80.1 Family history of malignant neoplasm of trachea, bronchus and lung; Z80.49 Family history of malignant neoplasm of other genital organs; Z82.49 Family history of ischemic heart disease and other diseases of the circulatory system; Z83.3 Family history of diabetes mellitus; Z85.3 Personal history of malignant neoplasm of breast; Z90.12 Acquired absence of left breast and nipple
CPT/HCPCS: 10022; 36415; 36600; 71045; 71250; 76604; 76775; 77012; 80048; 80053; 80307; 81001; 82306; 82570; 82805; 82962; 83036; 83615; 83735; 83880; 83935; 83986; 84100; 84156; 84300; 84443; 84484; 84550; 85025; 85048; 85379; 85610; 85730; 86300; 87040; 87070; 87086; 87088; 87186; 87205; 87426; 89051; 93005; 93306; 93925; 93970; 97110; 97116; 97162; 97530; A4223; C1729; G0378; J0696; J1335; J1815; J2250; J2405; J7060